=== PATIENT | male | born 1960 | race Caucasian/White ===

== ENCOUNTER → 2016-07-30 | Outpatient (CLI) | payer OTHER ==
[~2016-07-30] MED LIST: [UNRECOGNIZED DRUG - CODE]
[2016-07-30 18:32] LABS: BLOOD UREA NITROGEN 27 mg/dl (7-18); BUN/CREATININE RATIO 20.4 (10-20); CALCIUM 8.7 mg/dl (8.5-10.1); CARBON DIOXIDE 24 mmol/L (21-32); CHLORIDE 104 mmol/L (98-107); GLUCOSE 208 mg/dl (70-99); POTASSIUM 4.3 mmol/L (3.5-5.1); SODIUM 138 mmol/L (136-145)
[2016-07-30 18:45] LABS: CHOLESTEROL 99 mg/dl (0-200); CHOLESTEROL/HDL RATIO 3.2; HDL CHOLESTEROL 31 mg/dl; TRIGLYCERIDES 369 mg/dl (0-150); VERY LOW DENSITY LIPOPROT CALC 74 mg/dl
[2016-07-30 19:15] LABS: LDL CHOLESTEROL CALCULATED < 1 mg/dl
[2016-07-31 06:17] LABS: ESTIMATED AVERAGE GLUCOSE 192 mg/dl; HA1C FLAG Normal (Normal)
== END | disposition home or self-care (01) ==
LOC: C.LABPVFM 13:52
PROVIDERS: ATTEND Family Medicine
DX: N52.9 Male erectile dysfunction, unspecified (principal); E78.5 Hyperlipidemia, unspecified; E11.9 Type 2 diabetes mellitus without complications; M25.569 Pain in unspecified knee

== ENCOUNTER → 2016-08-01 | Outpatient (CLI) | payer OTHER ==
[2016-08-01 13:35] LABS: BLOOD UREA NITROGEN 24 mg/dl (7-18); BUN/CREATININE RATIO 32.6 (10-20); CALCIUM 9.7 mg/dl (8.5-10.1); CARBON DIOXIDE 28 mmol/L (21-32); CHLORIDE 108 mmol/L (98-107); CREATININE 0.75 mg/dl (0.60-1.40); GLUCOSE 119 mg/dl (70-99); POTASSIUM 4.4 mmol/L (3.5-5.1); SODIUM 143 mmol/L (136-145)
[2016-08-01 13:40] LABS: CHOLESTEROL 95 mg/dl (0-200); CHOLESTEROL/HDL RATIO 2.6; HDL CHOLESTEROL 37 mg/dl; LDL CHOLESTEROL CALCULATED 40 mg/dl; TRIGLYCERIDES 92 mg/dl (0-150); VERY LOW DENSITY LIPOPROT CALC 18 mg/dl
== END | disposition home or self-care (01) ==
LOC: C.LABPVFM 09:31
PROVIDERS: ATTEND Family Medicine
DX: E78.5 Hyperlipidemia, unspecified (principal); E11.9 Type 2 diabetes mellitus without complications; N52.9 Male erectile dysfunction, unspecified; I10 Essential (primary) hypertension

== ENCOUNTER → 2016-10-28 | Outpatient (CLI) | payer OTHER ==
[2016-10-29 06:22] LABS: ESTIMATED AVERAGE GLUCOSE 180 mg/dl; HA1C FLAG Normal (Normal)
== END | disposition home or self-care (01) ==
LOC: C.LABPVFM 15:35
PROVIDERS: ATTEND Family Medicine
DX: E11.9 Type 2 diabetes mellitus without complications (principal)

== ENCOUNTER → 2017-03-26 | Outpatient (CLI) | payer OTHER ==
[2017-03-26 18:02] LABS: ALT/SGPT 39 U/L (12-78); AST/SGOT 20 U/L (15-37); BLOOD UREA NITROGEN 17 mg/dl (7-18); BUN/CREATININE RATIO 22.5 (10-20); CALCIUM 9.3 mg/dl (8.5-10.1); CARBON DIOXIDE 27 mmol/L (21-32); CHLORIDE 106 mmol/L (98-107); CHOLESTEROL 96 mg/dl (0-200); CREATININE 0.75 mg/dl (0.60-1.40); GLUCOSE 77 mg/dl (70-99); POTASSIUM 4.1 mmol/L (3.5-5.1); SODIUM 139 mmol/L (136-145); TRIGLYCERIDES 88 mg/dl (0-150); VERY LOW DENSITY LIPOPROT CALC 18 mg/dl
[2017-03-26 18:05] LABS: ALB/GLOB RATIO 1.1 (0.9-2); ALKALINE PHOSPHATASE 58 U/L (45-117); CHOLESTEROL/HDL RATIO 2.7; HDL CHOLESTEROL 35 mg/dl; LDL CHOLESTEROL CALCULATED 43 mg/dl
[2017-03-27 07:00] LABS: ESTIMATED AVERAGE GLUCOSE 200 mg/dl; HA1C FLAG Normal (Normal)
== END | disposition home or self-care (01) ==
LOC: C.LABPVFM 15:38
PROVIDERS: ATTEND Family Medicine
DX: G47.00 Insomnia, unspecified (principal); E11.9 Type 2 diabetes mellitus without complications; I10 Essential (primary) hypertension; E78.5 Hyperlipidemia, unspecified; N52.9 Male erectile dysfunction, unspecified

== ENCOUNTER → 2017-06-29 | Outpatient (CLI) | payer BC, OTHER ==
[2017-06-29 18:51] LABS: ALBUMIN 3.7 gm/dl (3.4-5.0); ALT/SGPT 55 U/L (12-78); BLOOD UREA NITROGEN 23 mg/dl (7-18); CALCIUM 9.4 mg/dl (8.5-10.1); CARBON DIOXIDE 26 mmol/L (21-32); GLUCOSE 90 mg/dl (70-99); POTASSIUM 4.4 mmol/L (3.5-5.1); SODIUM 139 mmol/L (136-145)
[2017-06-29 18:58] LABS: ALKALINE PHOSPHATASE 65 U/L (45-117); AST/SGOT 35 U/L (15-37); TOTAL PROTEIN 6.9 gm/dl (6.4-8.2)
[2017-06-30 07:07] LABS: HEMOGLOBIN A1C 9.1 % (4.5-5.6)
== END | disposition home or self-care (01) ==
LOC: C.LABPVFM 15:21
PROVIDERS: ATTEND Family Medicine
DX: E78.5 Hyperlipidemia, unspecified (principal); N52.9 Male erectile dysfunction, unspecified; I10 Essential (primary) hypertension

== ENCOUNTER → 2017-09-20 | Outpatient (CLI) | payer BC, OTHER ==
[2017-09-21 06:25] LABS: HEMOGLOBIN A1C 9.1 % (4.5-5.6)
== END | disposition home or self-care (01) ==
LOC: C.LABPVFM 14:49
PROVIDERS: ATTEND Family Medicine
DX: N52.9 Male erectile dysfunction, unspecified (principal); G47.00 Insomnia, unspecified; E11.9 Type 2 diabetes mellitus without complications; I10 Essential (primary) hypertension; E78.5 Hyperlipidemia, unspecified

== ENCOUNTER → 2018-01-19 | Outpatient (CLI) | payer BC, OTHER ==
[2018-01-19 17:51] LABS: ALBUMIN 3.9 gm/dl (3.4-5.0); ALKALINE PHOSPHATASE 85 U/L (45-117); ALT/SGPT 59 U/L (12-78); AST/SGOT 31 U/L (15-37); BLOOD UREA NITROGEN 22 mg/dl (7-18); CALCIUM 9.4 mg/dl (8.5-10.1); CARBON DIOXIDE 27 mmol/L (21-32); CREATININE 1.04 mg/dl (0.60-1.40); GLUCOSE 192 mg/dl (70-99); POTASSIUM 4.1 mmol/L (3.5-5.1); SODIUM 136 mmol/L (136-145); TOTAL PROTEIN 7.2 gm/dl (6.4-8.2)
== END | disposition home or self-care (01) ==
LOC: C.LABPVFM 15:38
PROVIDERS: ATTEND Family Medicine
DX: E11.29 Type 2 diabetes mellitus with other diabetic kidney complication (principal)

== ENCOUNTER 2022-09-01 06:25 | Observation (INO) ==
--- NOTE | 2022-08-25 10:29 | Anesthesiology Consultation ---
Date of Service August 25, 2022 Assessment & Plan (1) Encounter for pre-operative examination: Chart Review Chart Review: Acceptable Risk for Surgery and Patient NOT seen in Pre Admission Testing - Check BSG AM DOS -COVID screening: Per PAT nursing assessment on 08/25/22. No known COVID-19 positive contacts or current COVID-19 related symptoms. Travel screen negative. Patient vaccinated for Covid. At surgeon discretion if preop Covid testing being done. History Surgery Operation Date: 09/01/22 08:50 Proposed Procedures p Robotic Laparoscopic Assisted Partial Nephrectomy Right Radical - Nima Bond MD Height/Weight Height: 5 ft 9.5 in Weight: 93.894 kg Allergies Allergy/AdvReac Type Severity Reaction Status Date / Time meperidine Allergy Mild "GOES Verified 08/25/22 09:42 BEZERC", TEARS THINGS UP Medications Home Medications Medication Instructions Recorded Confirmed Last Taken aspirin 81 mg tablet,delayed 81 mg PO DAILY #30 tabs 11/06/18 08/25/22 Unknown release (Adult Low Dose Aspirin) blood-glucose meter #1 ea 11/09/19 08/19/22 Unknown lancets #100 ea 11/09/19 08/19/22 Unknown blood sugar diagnostic (Blood #100 ea 07/23/21 08/19/22 Unknown Glucose Test strips) glipizide 10 mg tablet 10 mg PO BID #180 tabs 02/02/22 08/25/22 Unknown metformin 1,000 mg tablet 1,000 mg PO BID #180 tabs 02/02/22 08/25/22 Unknown empagliflozin 25 mg tablet 25 mg PO DAILY #90 tabs 03/09/22 08/25/22 Unknown gabapentin 100 mg capsule 100 - 200 mg PO TID PRN neuropathy 03/09/22 08/25/22 Unknown #180 caps atorvastatin 40 mg tablet 40 mg PO QPM #90 tabs 06/11/22 08/25/22 Unknown dulaglutide 1.5 mg/0.5 mL 1.5 mg (0.5 mL) subcut .COMPLEX #6 06/11/22 08/25/22 Unknown subcutaneous pen injector mL lisinopril 40 mg tablet 40 mg PO DAILY #90 tabs 06/11/22 08/25/22 Unknown multivitamin 1 tab PO QAM 08/25/22 08/25/22 Unknown Past Medical History Medical History (Updated 08/25/22 @ 10:43 by Zahraa Blackwell PA-C) Chronic kidney disease Follows with nephro- last seen 08/02/22 Baseline creat 1.1 Diabetes mellitus Hyperlipidemia Hypertension Kidney stones Peripheral neuropathy bilateral legs/feet Renal mass, right Upper extremity neuropathy right hand severe Past Family History Family History Father Diabetes Alcohol abuse Myocardial infarction History of kidney stones Hypertension Mother Myocardial infarction History of kidney stones Hypertension Sister History of kidney stones Cancer Of stomach Brother Diabetes Stroke Other No family history of adverse response to anesthesia Denies family history of Ovarian cancer Prostate cancer Breast cancer Colorectal cancer Past Surgical History Surgical History History of lithotripsy History of nasal surgery History of shoulder surgery right History of tooth extraction Social History Smoking Status: Former smoker tobacco type: cigarettes Smoking cigarettes per day: Pack a week Smoking End Date: Jun/Jul 2022 Hx Alcohol Use: Yes Alcohol type: beer alcohol intake frequency: a few times a month Hx Substance Use: No substance use type: does not use Lab Results Anesthesia Preop Results Results Anesthesia Widget: WBC 7.05 K/ul (4.8-10.8) 08/24/22 Hgb 11.2 g/dl (14.0-18.0) L 08/24/22 Hct 34.9 % (42.0-52.0) L 08/24/22 Plt 251 K/uL (130-400) 08/24/22 Na 138 mmol/L (136-145) 08/24/22 K 4.5 mmol/L (3.5-5.1) 08/24/22 Cl 103 mmol/L (98-107) 08/24/22 CO2 26 mmol/L (21-32) 08/24/22 BUN 33 mg/dl (6-23) H 08/24/22 Creat 1.09 mg/dl (0.6-1.4) 08/24/22 Glucose Level 197 mg/dl (70-99(Fasting)) H 08/24/22 Testing Laboratory Results 08/19/22= UA: Negative URINE CULTURE: No growth 06/12/22= HGB A1C: 8.2 Electrocardiogram Date: 08/24/22 Findings: + NSR @ (85bpm) RBBB Chest X-Ray Date: 08/24/22 Findings: + NAD FINDINGS: PA and lateral chest radiographs are obtained. No prior studies are available for comparison at the time of dictation. The cardiomediastinal silhouette is unremarkable. There is mild elevation of the left hemidiaphragm with associated atelectasis. The lungs and pleural spaces are otherwise clear. There is no pneumothorax. The bony thorax appears intact. Degenerative change is noted in the thoracic spine.
[~2022-09-01 06:25] MED LIST changes: +LR 15ML/HR IV SCH; -[UNRECOGNIZED DRUG - CODE]; +ceFAZolin 2000MG 2,000 MG/15 ML SYR IV SCH
[2022-09-01] MEDS ORDERED: DEXAMETHASONE SOD INJ 4 MG/ML VIAL ONE ×2 (06:59→09:59)
[2022-09-01] MEDS ORDERED: fentaNYL citrate PF 100 MCG/2 ML VIAL ONE (07:00)
[2022-09-01] MEDS ORDERED: ROCURONIUM BROMIDE 10 MG/ML 5 ML VIAL IV ONE (07:00)
[2022-09-01] MEDS ORDERED: SUGAMMADEX SODIUM 200 MG/2 ML VIAL IV ONE (07:00)
[2022-09-01] MEDS ORDERED: LIDOCAINE 2% 2 ML VIAL/AMP(20MG/ML) INFIL ONE (07:00)
[2022-09-01] MEDS ORDERED: MIDAZOLAM HCL 1 MG/ML 2ML VIAL ONE (07:00)
[2022-09-01] MEDS ORDERED: ONDANSETRON INJ 2 MG/ML 2 ML VIAL ONE (07:00)
[2022-09-01] MEDS ORDERED: PROPOFOL IV EMULSION 10 MG/ML 20 ML VIAL IV ONE (07:00)
--- NOTE | 2022-09-01 07:13 | History & Physical Bridge Note ---
Date of Service September 01, 2022 History & Physical Bridge Note I have examined the patient, reviewed the History & Physical and in the interval since the performance of the History & Physical I have noted the following changes of clinical significance: no changes noted
[2022-09-01] MEDS ORDERED: ONDANSETRON INJ 2 MG/ML 2 ML VIAL IV PRN ×2 (07:42→12:35)
[2022-09-01] MEDS ORDERED: ATROPINE SULFATE 0.1 MG/ML 10ML SYR IV PRN (07:42)
[2022-09-01] MEDS ORDERED: ePHEDrine sulfate 50 MG/ML AMP IV PRN (07:42)
[2022-09-01] MEDS ORDERED: BUPIVACAINE 0.5 % 5 MG/1 ML MPF 30ML VIAL ONE (08:20)
[2022-09-01] MEDS ORDERED: HYDROmorphone INJ 2 MG/ML SYR/VIAL ONE (09:27)
--- NOTE | 2022-09-01 11:15 | Operative Report ---
PG Post Operative Report Pre & Post Diagnosis Operation Date: 09/01/22 08:15 Pre-Op Diagnosis: Right Renal Mass; suspicious paracaval node Post-Op Diagnosis: Right Renal Mass; suspicious paracaval adenopathy I identified the patient and participated in the time-out.: Yes Procedure Operation Date: 09/01/22 08:15 Actual Procedures p Right Radical Hand Assisted Nephrectomy(Right) - Nima Bond MD Surgeon Nima Bond MD [employer] T[employer] Patrizia Rogers Estimated Blood Loss 50 Findings Consistent with Post-Op Diagnosis Specimens 1. Right kidney 2. Paracaval node Description of Procedure Patient was identified in the preoperative holding area, appropriate informed consents reviewed and completed and he was transferred to the operating suite. Upon arrival she had appropriate preoperative antibiotics was placed in the left side down right side up lateral decubitus position with the bed flexed. Fish catheter was inserted prior to prep. To begin the surgical portion of the case an incision was made in the right lower quadrant in the Jerome style. This was carried down to the lateral border of the rectus and laterally we dissected through the external oblique, internal oblique and transversalis. The peritoneum was opened sharply and a finger sweep performed revealing no adhesions. This incision was then widened to approximately 8 cm. This accommodated a HandPort which was subsequently placed. I insufflated the abdomen by placing a 12 mm trocar through the HandPort. I then performed a l aparoscopic evaluation and confirmed that the anterior abdominal wall was cleared of adhesions and proceeded to place 212 mm daycare assistant ports just lateral to the rectus border, 1 approximately 4 cm below the costal margin in the next approximately 8 cm inferior to that port. Both leads were placed directly onto my hand without incident. To begin the laparoscopic portion of the case I incised the white line of Toldt and medialize the colon off of the kidney. The duodenum was already somewhat medialized and did not require a significant kocherization. I incised lateral to the kidney and I also incised the superior aspect of the peritoneum overlying the upper pole of the kidney. The liver was somewhat adherent to the kidney and I dissected between the 2 to further mobilize the liver and allow access to the upper pole of the kidney. All of this dissection was performed with a combination of harmonic scalpel and blunt dissection. I then turned my attention to the medial aspect of the kidney. We were able to identify the gonadal vein and I dissected a plane just lateral to the gonadal and IVC and onto the psoas muscle. The ureter was included in the packet lateral to this dissection. I was able to perform blunt dissection across the psoas muscle and free the posterior aspect of the kidney. I was unable to place my hand under the hilar structures and posterior aspect in the elevating the kidney and placing the hilar vessels on stretch. We carefully teased away up the lateral border of the IVC until we reached the inferior pole of the vein. A window was made behind the vascular structures and into a space just cephalad to the hilar structures. A 60 mm staple device was passed and the hilar structures controlled in a single load. The adrenal gland was in close proximity at that time and I placed 3 additional staple loads across the upper pole of the kidney taking a portion of the adrenal gland with me. This freed the upper medial aspect of the kidney. I then turned my attention back to the lateral and extreme upper pole of the kidney. These were dissected utilizing the harmonic scalpel until the kidney was entirely freed with the exception of the lower cone of Gerota's fascia and ureter. This area was controlled with harmonic scalpel with extra care for the ureter. The specimen was then extracted through the GelPort and passed off the table. Hemostasis was excellent. Of note, the patient also had a suspicious lymph node on the anterior surface of the cava just above the hilar structures. We turned our attention to this area and began to dissect along the superior surface of the cava. Unfortunately he has likely had prior cholecystitis and his gallbladder was stuck down to some omentum. Careful dissection allowed this to be elevated and further expose the cava. We are able to palpate the suspicious node. This was approximately 1 to 1-1/2 cm in size. We carefully dissected around it and removed it. Unfortunate is quite adherent to the cava as there was no additional tissue taken. I felt no other abnormal nodes or suspicious adenopathy. Hemostasis from this area was excellent as well. We then proceeded to close. I again confirmed excellent hemostasis before beginning to reapproximate the superficial tissues. I closed the peritoneum with a running 0 Vicryl to help facilitate visualization of the rest of the fascial closure. We then closed transversalis with a 0 Vicryl followed by external oblique fascia and internal oblique fascia both with 0 PDS sutures in running fashion. Sharon's fascia was reapproximated with 0 Vicryl before closure of the skin with 4-0 Monocryl. All of those layers were infiltrated with half percent Marcaine prior to completing the closure. Dermabond was placed over that incision. The 2-12 mm daycare assistant ports were both closed with 4- 0 Monocryl and Dermabond and both were also infiltrated with half percent Marcaine prior to closure. At the conclusion of the case the kidney and lymph node were passed off the table for pathology. He was reversed of anesthesia. There were no complications. He tolerated the procedure extremely well. Patrizia Rogers assisted throughout the entire procedure from incision to closure. I attest to the content of the Intraoperative Record and any orders documented therein. Any exceptions are noted below.
[2022-09-01] MEDS: fentaNYL citrate PF 100 MCG/2 ML VIAL IV PRN ×4 (11:22→11:37)
[2022-09-01] MEDS ORDERED: LABETALOL HCL IV 5 MG/ML 20ML IV ONE (11:33)
[2022-09-01] MEDS ORDERED: LABETALOL HCL IV 5 MG/ML 20ML IV STA (11:35)
[2022-09-01 11:38] LABS: Basophils # (auto) 0.05 K/uL (0-0.2); Basophils % (auto) 0.3 %; Eosinophils # (auto) 0.08 K/uL (0-0.50); Eosinophils % (auto) 0.6 %; Hematocrit (blood only) 35.2 % (42.0-52.0); Hemoglobin 11.1 g/dl (14.0-18.0); Immature Granulocytes # (auto) 0.08 K/uL (0.01-0.20); Immature Granulocytes % (auto) 0.6 %; Lymphocytes # (auto) 1.51 K/uL (1.2-3.4); Lymphocytes % (auto) 10.4 %; Mean Corpuscular Hemoglobin 28.7 pg (25.0-34.0); Mean Corpuscular Hgb Conc 31.5 g/dL (32.0-36.0); Mean Platelet Volume 9.5 fL (9.4-12.4); Monocytes # (auto) 0.47 K/uL (0.11-0.59); Monocytes % (auto) 3.2 %; Neutrophils # (auto) 12.34 K/uL (1.40-6.50); Neutrophils % (auto) 84.9 %; Platelet Count 266 K/uL (130-400); RDW Standard Deviation 46.2 fL (36.4-46.3); Red Blood Count 3.87 M/uL (4.70-6.10); White Blood Count 14.53 K/ul (4.8-10.8)
[2022-09-01] MEDS: HYDROmorphone INJ 1 MG/ML SYRINGE IV PRN ×4 (11:51→12:06)
[2022-09-01] MEDS ORDERED: HYDROmorphone INJ 1 MG/ML SYRINGE ONE (11:54)
[2022-09-01 11:55] LABS: BUN Creatinine Ratio 23.8 (10-20); Calcium 9.3 mg/dl (8.6-10.3); Creatinine Clr Calc Pharmacy 72.1 ml/min; Est GFR (African American) 73.7 ml/min; Est GFR (Non-African American) 63.6 ml/min; Potassium 5.3 mmol/L (3.5-5.1)
[2022-09-01] MEDS ORDERED: HYDROmorphone INJ 0.5 MG/0.5 ML SYR IV STA (12:03)
[2022-09-01] MEDS ORDERED: MoRPHine SULFATE 2 MG/ML CARP IV PRN (12:35)
[2022-09-01] MEDS ORDERED: GABAPENTIN 100 MG CAP PO PRN (12:35)
[2022-09-01] MEDS ORDERED: PHARMACY GLYCEMIC MGMT CONSULT PRN (12:35)
[2022-09-01] MEDS ORDERED: oxyCODONE HCL IR 5 MG TAB (IMMEDIATE RELEASE) PO PRN (12:35)
[2022-09-01] MEDS ORDERED: MoRPHine SULFATE 4 MG/ML 1 ML CARP\\VIAL IV PRN (12:35)
[2022-09-01] MEDS: LACTATED RINGER'S 1,000 ML IV SCH ×2 (12:50→22:53)
[2022-09-01] MEDS ORDERED: GLUCOSE 40% GEL 15 GM TUBE PO PRN (13:00)
[2022-09-01] MEDS ORDERED: DEXTROSE 50% 50 ML SYRINGE IV PRN (13:00)
[2022-09-01] MEDS ORDERED: GLUCAGON FOR INJ 1 MG VIAL IM PRN (13:00)
[2022-09-01] MEDS ORDERED: CARBOHYDRATES FOR HYPOGLYCEMIA PO PRN (13:00)
[2022-09-01] MEDS ORDERED: GLUCOSE 10 TAB/TUBE PO PRN (13:00)
--- NOTE | 2022-09-01 13:11 | Pharmacy Report ---
Pharmacy Glycemic Short Note 2 - Date of Service September 01, 2022 - Glycemic Short BSG Results (Last 24 hours): 09/01/22 09/01/22 09/01/22 06:53 11:09 11:17 Glucose 194 H POC Glucose 95 181 H 09/01/22 12:37 Glucose POC Glucose 200 H OUTPATIENT ANTIDIABETIC REGIMEN: * Metformin 1 g PO BID, glipizide 10 mg PO BID, empagliflozin 25 mg PO daily, dulaglutide 1.5 mg SQ weekly * A1c = 8.2% (06/12/22) ASSESSMENT: * Phillip is s/p right radical hand assisted nephrectomy. It appears that he may have received two dose of dexamethasone IV per-operatively. * He is on multiple oral anti-diabetic agents + GLP-1 receptor agonist as an outpatient. These agents will be held and SQ basal + bolus insulin will be started. Will dose Novolog based on weight/stress 3 for POD #0. PLAN FOR INPATIENT GLYCEMIC CONTROL: * Hold outpatient oral diabetes medications * Basal insulin * Lantus 20 units SQ x 1 * Further dosing TBD * Bolus insulin * NovoLog per scale ACHS or Q6hrs while NPO * Goal Range: Low 110 mg/dL - High 140 mg/dL * Correction Factor: 20 mg/dL/unit * Nutritional / Prandial insulin per carb ratio of 1 unit per 7 grams CHO consumed
[2022-09-01] MEDS ORDERED: LANTUS PER UNIT CHARGE SQ ONE (13:15)
[2022-09-01] MEDS: INSULIN ASPART PER UNIT CHARGE SC SCH ×3 (13:23→22:08)
[2022-09-01] MEDS: ACETAMINOPHEN 325 MG TAB PO SCH ×2 (13:31→20:37)
[2022-09-01] MEDS: oxyCODONE HCL IR 5 MG TAB (IMMEDIATE RELEASE) PO PRN ×2 (14:45→22:21)
--- NOTE | 2022-09-01 15:03 | Anesthesiology Progress Note ---
Date of Service September 01, 2022 Anesthesia Post Procedure Vital Signs Vital Signs: Temp Pulse Resp BP Pulse Ox O2 Del Method O2 Flow Rate 09/01/22 14:45 97.7 F 91 H 18 146/76 H Nasal Cannula 2 09/01/22 13:45 98.1 F 90 18 160/79 H 97 Nasal Cannula 2 09/01/22 13:18 87 18 161/77 H 98 Nasal Cannula 2 09/01/22 12:45 Nasal Cannula 2 09/01/22 12:36 98.6 F 84 16 156/80 H 96 Room Air 09/01/22 12:15 97.5 F L 78 16 171/86 H 98 Nasal Cannula 2 09/01/22 12:05 82 16 163/87 H 99 Nasal Cannula 2 09/01/22 11:55 78 16 178/92 H 99 Nasal Cannula 2 09/01/22 11:45 79 18 171/93 H 99 Room Air 09/01/22 11:35 84 18 176/82 H 95 Oxymask 5 09/01/22 11:25 89 18 216/117 H 100 Oxymask 5 09/01/22 11:15 91 H 18 192/92 H 97 Oxymask 5 09/01/22 11:07 97.2 F L 92 H 18 193/91 H 97 Oxymask 5 09/01/22 06:52 98.1 F 76 18 148/71 H 98 Room Air Pain Intensity Bilateral Foot: Pain Intensity: 3 Penis: Pain Intensity: 8 Transfer of Care Handoff Completed per policy Notes Mental Status: alert / awake / arousable and participated in evaluation Patient Amnestic to Procedure: Yes Nausea / Vomiting: adequately controlled Pain: adequately controlled Airway Patency, RR, SpO2: stable & adequate BP & HR: stable & adequate Hydration State: stable & adequate Anesthetic Complications: no major complications apparent and Pt Satisfied with anesthetic care
[2022-09-01] MEDS: ceFAZolin 2000MG 2,000 MG/15 ML SYR IV SCH (16:40)
[2022-09-01] MEDS: DOCUSATE SODIUM 100 MG CAP PO SCH (20:37)
[2022-09-01] MEDS: ATORVASTATIN 40 MG TAB PO SCH (20:37)
[2022-09-01] MEDS: HEPARIN SOD 5,000 UNIT/0.5 ML VIAL SQ SCH (20:40)
[2022-09-02] MEDS: ceFAZolin 2000MG 2,000 MG/15 ML SYR IV SCH (00:34)
[2022-09-02] MEDS: ACETAMINOPHEN 325 MG TAB PO SCH ×4 (01:21→19:39)
[2022-09-02 07:27] LABS: Basophils # (auto) 0.04 K/uL (0-0.2); Basophils % (auto) 0.4 %; Eosinophils # (auto) 0.03 K/uL (0-0.50); Eosinophils % (auto) 0.3 %; Hematocrit (blood only) 33.4 % (42.0-52.0); Hemoglobin 10.7 g/dl (14.0-18.0); Immature Granulocytes # (auto) 0.02 K/uL (0.01-0.20); Immature Granulocytes % (auto) 0.2 %; Lymphocytes # (auto) 1.24 K/uL (1.2-3.4); Lymphocytes % (auto) 12.6 %; Mean Corpuscular Volume 90.5 fL (80.0-100.0); Mean Platelet Volume 9.9 fL (9.4-12.4); Monocytes # (auto) 0.83 K/uL (0.11-0.59); Monocytes % (auto) 8.5 %; Neutrophils # (auto) 7.66 K/uL (1.40-6.50); Platelet Count 248 K/uL (130-400); RDW Coefficient of Variation 13.9 % (11.5-14.5); RDW Standard Deviation 45.8 fL (36.4-46.3); Red Blood Count 3.69 M/uL (4.70-6.10); White Blood Count 9.82 K/ul (4.8-10.8)
--- NOTE | 2022-09-02 08:01 | Urology Progress Note ---
Date of Service September 02, 2022 Assessment & Plan (1) Renal mass, right: Plan: Postop day #1 status post right radical nephrectomy and excision of pericaval lymph node Doing very well now Hemoglobin appropriate, creatinine pendingexcellent urine output overnight Plan for Fish removal this morning Ambulation Continue diet Likely discharge home tomorrow if he continues to progress Admission and Anticipated Discharge Date Admission Date: September 01, 2022 Subjective No major issues overnight Tolerating diet Some minor discomfort around the incision as would be expected but no other concerning symptoms Physical Exam Physical Exam: Incisions appropriate, abdomen soft, appropriately tender Urine clear Results & Data Vital Signs (Past 12 Hours) Vital Signs Temp Pulse Resp BP Pulse Ox O2 Del Method 09/02/22 06:57 36.6 C 59 L 18 147/71 H 98 Room Air 09/02/22 03:00 36.7 C 71 18 127/64 96 Room Air 09/01/22 23:00 36.6 C 91 H 16 139/70 94 Room Air PG Care Time/CCT Total # of Minutes Spent Total Time Spent with Patient: Total time spent is greater than 50% in coordination of care (as documented) at patient's floor/unit and/or counseling patient: Coding Level of Care Code None Diagnoses Renal mass, right N28.89
[2022-09-02 09:17] LABS: Calcium 9.1 mg/dl (8.6-10.3)
[2022-09-02] MEDS: DOCUSATE SODIUM 100 MG CAP PO SCH ×2 (09:21→19:39)
[2022-09-02] MEDS: LACTATED RINGER'S 1,000 ML IV SCH ×2 (09:21→21:16)
[2022-09-02] MEDS: oxyCODONE HCL IR 5 MG TAB (IMMEDIATE RELEASE) PO PRN ×2 (09:22→17:47)
[2022-09-02] MEDS: HEPARIN SOD 5,000 UNIT/0.5 ML VIAL SQ SCH ×2 (09:23→19:40)
[2022-09-02] MEDS: INSULIN ASPART PER UNIT CHARGE SC SCH ×4 (09:23→21:14)
[2022-09-02 09:26] LABS: BUN Creatinine Ratio 18.6 (10-20); Creatinine Clr Calc Pharmacy 43.1 ml/min; Est GFR (African American) 39.6 ml/min; Est GFR (Non-African American) 34.2 ml/min
--- NOTE | 2022-09-02 14:04 | Pharmacy Report ---
Pharmacy Glycemic Short Note 2 - Date of Service September 02, 2022 - Glycemic Short BSG Results (Last 24 hours): 09/01/22 09/01/22 09/02/22 16:51 20:20 06:45 Glucose 112 H POC Glucose 230 H 198 H 09/02/22 09/02/22 08:03 12:07 Glucose POC Glucose 133 H 256 H OUTPATIENT ANTIDIABETIC REGIMEN: * Metformin 1 g PO BID, glipizide 10 mg PO BID, empagliflozin 25 mg PO daily, dulaglutide 1.5 mg SQ weekly * A1c = 8.2% (06/12/22) ASSESSMENT: 09/02 * Yesterday BSG was between 95-230 mg/dL. Total insulin was 44 units (Basal 20 units) * FBSG today was 133 mg/dL. Suspect dexamethasone was given in the OR during surgery 09/01. Expect BSG to start trending down over the day as dexamethasone start to wear off * Reduced basal by 10 % (18 units of Lantus) and added overnight checks 09/01 * Phillip is s/p right radical hand assisted nephrectomy. It appears that he may have received two dose of dexamethasone IV per-operatively. * He is on multiple oral anti-diabetic agents + GLP-1 receptor agonist as an out patient. These agents will be held and SQ basal + bolus insulin will be started. Will dose Novolog based on weight/stress 3 for POD #0. PLAN FOR INPATIENT GLYCEMIC CONTROL: * Hold outpatient oral diabetes medications * Basal insulin * Lantus 20 units SQ x 1 * Further dosing TBD * Bolus insulin * NovoLog per scale ACHS or Q6hrs while NPO * Goal Range: Low 110 mg/dL - High 140 mg/dL * Correction Factor: 20 mg/dL/unit * Nutritional / Prandial insulin per carb ratio of 1 unit per 7 grams CHO consumed
[2022-09-02] MEDS ORDERED: LANTUS PER UNIT CHARGE SQ ONE (16:30)
[2022-09-02] MEDS: ATORVASTATIN 40 MG TAB PO SCH (19:40)
[2022-09-03] MEDS: oxyCODONE HCL IR 5 MG TAB (IMMEDIATE RELEASE) PO PRN ×2 (00:05→12:49)
[2022-09-03] MEDS: INSULIN ASPART PER UNIT CHARGE SC SCH ×6 (00:10→20:19)
[2022-09-03] MEDS: ACETAMINOPHEN 325 MG TAB PO SCH ×4 (01:43→20:38)
[2022-09-03 06:34] LABS: Basophils # (auto) 0.05 K/uL (0-0.2); Basophils % (auto) 0.6 %; Eosinophils # (auto) 0.18 K/uL (0-0.50); Eosinophils % (auto) 2.3 %; Hematocrit (blood only) 36.1 % (42.0-52.0); Hemoglobin 11.4 g/dl (14.0-18.0); Immature Granulocytes # (auto) 0.02 K/uL (0.01-0.20); Immature Granulocytes % (auto) 0.3 %; Lymphocytes # (auto) 1.45 K/uL (1.2-3.4); Lymphocytes % (auto) 18.3 %; Mean Corpuscular Hgb Conc 31.6 g/dL (32.0-36.0); Mean Corpuscular Volume 91.9 fL (80.0-100.0); Mean Platelet Volume 9.5 fL (9.4-12.4); Monocytes # (auto) 0.69 K/uL (0.11-0.59); Monocytes % (auto) 8.7 %; Neutrophils # (auto) 5.55 K/uL (1.40-6.50); Neutrophils % (auto) 69.8 %; Platelet Count 268 K/uL (130-400); RDW Coefficient of Variation 14.2 % (11.5-14.5); RDW Standard Deviation 48.4 fL (36.4-46.3); Red Blood Count 3.93 M/uL (4.70-6.10); White Blood Count 7.94 K/ul (4.8-10.8)
[2022-09-03 06:56] LABS: BUN Creatinine Ratio 20.4 (10-20); Calcium 9.4 mg/dl (8.6-10.3); Creatinine Clr Calc Pharmacy 43.7 ml/min; Est GFR (African American) 40.3 ml/min; Est GFR (Non-African American) 34.8 ml/min; Potassium 4.9 mmol/L (3.5-5.1)
[2022-09-03] MEDS: DOCUSATE SODIUM 100 MG CAP PO SCH ×2 (08:47→20:37)
[2022-09-03] MEDS: HEPARIN SOD 5,000 UNIT/0.5 ML VIAL SQ SCH ×2 (08:47→20:37)
[2022-09-03] MEDS: LACTATED RINGER'S 1,000 ML IV SCH (08:48)
--- NOTE | 2022-09-03 09:41 | Urology Progress Note ---
Date of Service September 03, 2022 Assessment & Plan (1) Renal mass, right: Plan: POD #2 status post right radical nephrectomy and excision of pericaval lymph node Doing well, progressing as expected Labs reviewed - creatinine 2.01, WBC 7.94, Hgb 11.4 Voiding without difficulty after catheter removal He is ambulating and tolerating diet Continues to have some discomfort near incisions especially with position changes/movement He lives alone and hesitant to go home today Will monitor throughout the day and anticipate home later today or tomorrow depending on progress Discussed home medications with his information systems planner after discharge - will stop Lisinopril and switch to Amlodipine 5 mg daily, stop Metformin Admission and Anticipated Discharge Date Admission Date: September 01, 2022 Subjective Patient seen and examined at bedside this morning. He is awake, alert and sitting up in bedside chair. He reports poor sleep overnight but no acute issues. He continues to have pain near incisions mostly with movement and position changes. He has been ambulating. Voiding without difficulty after catheter removal yesterday. Tolerating diet. +Flatus. No nausea or vomiting. No fever or chills. Review of Systems Constitutional: as per Subjective / HPI Gastrointestinal: as per Subjective / HPI Genitourinary: + as per Subjective / HPI Physical Exam Constitutional: well developed and well nourished; no acute distress Respiratory: normal respiratory effort; no respiratory distress and no labored breathing Cardiovascular: Rate/Rhythm: regular rate Extremities: no pedal edema Gastrointestinal (Abdomen): Inspection/Auscultation: abdomen normal to inspection; abdomen not distended Abdomen soft, appropriately tender near incisions Skin: Incisions healthy and well approximated with Dermabond Psychiatric: Orientation: alert and oriented x 3 Results & Data Vital Signs (Past 12 Hours) Vital Signs Temp Pulse Resp BP Pulse Ox O2 Del Method 09/03/22 08:00 Room Air 09/03/22 07:44 36.7 C 69 18 149/81 H 97 Room Air 09/02/22 22:40 36.9 C 67 18 137/73 94 Room Air PG Care Time/CCT Total # of Minutes Spent Total Time Spent with Patient: Total time spent is greater than 50% in coordination of care (as documented) at patient's floor/unit and/or counseling patient: Coding Level of Care Code None Diagnoses Renal mass, right N28.89
[2022-09-03] MEDS ORDERED: LANTUS PER UNIT CHARGE SQ ONE (16:30)
[2022-09-03] MEDS: SIMETHICONE 80 MG CHEW PO PRN ×2 (16:55→22:20)
[2022-09-03] MEDS: ATORVASTATIN 40 MG TAB PO SCH (20:40)
[2022-09-04] MEDS: ACETAMINOPHEN 325 MG TAB PO SCH ×2 (02:20→09:02)
[2022-09-04] MEDS: HEPARIN SOD 5,000 UNIT/0.5 ML VIAL SQ SCH (08:49)
[2022-09-04 08:52] LABS: Basophils # (auto) 0.07 K/uL (0-0.2); Basophils % (auto) 1.2 %; Eosinophils # (auto) 0.24 K/uL (0-0.50); Hemoglobin 10.8 g/dl (14.0-18.0); Immature Granulocytes # (auto) 0.02 K/uL (0.01-0.20); Immature Granulocytes % (auto) 0.3 %; Lymphocytes # (auto) 0.92 K/uL (1.2-3.4); Lymphocytes % (auto) 15.4 %; Mean Corpuscular Hemoglobin 28.5 pg (25.0-34.0); Mean Corpuscular Hgb Conc 31.8 g/dL (32.0-36.0); Mean Corpuscular Volume 89.7 fL (80.0-100.0); Mean Platelet Volume 9.6 fL (9.4-12.4); Monocytes # (auto) 0.51 K/uL (0.11-0.59); Monocytes % (auto) 8.5 %; Neutrophils # (auto) 4.23 K/uL (1.40-6.50); Neutrophils % (auto) 70.6 %; Platelet Count 264 K/uL (130-400); RDW Coefficient of Variation 14.3 % (11.5-14.5); RDW Standard Deviation 46.5 fL (36.4-46.3); Red Blood Count 3.79 M/uL (4.70-6.10); White Blood Count 5.99 K/ul (4.8-10.8)
[2022-09-04] MEDS: oxyCODONE HCL IR 5 MG TAB (IMMEDIATE RELEASE) PO PRN (09:02)
[2022-09-04] MEDS: DOCUSATE SODIUM 100 MG CAP PO SCH (09:02)
[2022-09-04] MEDS: SIMETHICONE 80 MG CHEW PO PRN (09:04)
[2022-09-04 09:05] LABS: BUN Creatinine Ratio 20.5 (10-20); Calcium 9.5 mg/dl (8.6-10.3); Creatinine Clr Calc Pharmacy 45.1 ml/min; Est GFR (African American) 41.8 ml/min; Est GFR (Non-African American) 36.1 ml/min; Potassium 4.9 mmol/L (3.5-5.1)
--- NOTE | 2022-09-04 09:28 | Urology Progress Note ---
Date of Service September 04, 2022 Assessment & Plan (1) Renal mass, right: Plan: POD #3 s/p right radical nephrectomy and excision of pericaval lymph node for suspected renal malignancy Doing well, progressing as expected Labs reviewed - creatinine 1.95, WBC 5.99, Hgb 10.8 Voiding without difficulty He is ambulating and tolerating diet Reports adequate pain control He feels he is ready to go home today Plan to discharge this am - orders placed Discussed home medications with his waiter/waitress room service after discharge - will stop Lisinopril and switch to Amlodipine 5 mg daily, stop Metformin until follow-up with PCP. Will plan for BMP prior to f/u with PCP. Urology follow-up appointments in place. Admission and Anticipated Discharge Date Admission Date: September 01, 2022 Subjective Patient seen and examined at bedside this morning. He is awake, alert and sitting up in bedside chair. He reports feeling much better this am. He has been ambulating and showered this am. He continues to have some pain near incisions mostly with movement and position changes, but has improved. He had some gas pain yesterday, which is improving. Voiding without difficulty. Tolerating diet. +Flatus. No nausea or vomiting. No fever or chills. Review of Systems Constitutional: as per Subjective / HPI Gastrointestinal: as per Subjective / HPI Genitourinary: + as per Subjective / HPI Physical Exam Constitutional: well developed and well nourished; no acute distress Respiratory: normal respiratory effort; no respiratory distress and no labored breathing Cardiovascular: Rate/Rhythm: regular rate Extremities: no pedal edema Gastrointestinal (Abdomen): Inspection/Auscultation: abdomen normal to inspection; abdomen not distended Abdomen soft, appropriately tender near incisions Skin: Incisions healthy and well approximated with Dermabond Psychiatric: Orientation: alert and oriented x 3 Results & Data Vital Signs (Past 12 Hours) Vital Signs Temp Pulse Pulse Resp BP Pulse Ox O2 Del Method 09/04/22 08:01 36.4 C L 72 14 168/78 H 97 Room Air 09/03/22 22:16 36.7 C 84 16 138/78 95 Room Air PG Care Time/CCT Total # of Minutes Spent Total Time Spent with Patient: Total time spent is greater than 50% in coordination of care (as documented) at patient's floor/unit and/or counseling patient: Coding Level of Care Code None Diagnoses Renal mass, right N28.89
[2022-09-04] MEDS: INSULIN ASPART PER UNIT CHARGE SC SCH (09:32)
--- NOTE | 2022-09-04 09:41 | Discharge Summary ---
Date of Service September 04, 2022 Admission HPI Per Admitting Provider Patient with an enhancing, solid 5.3 cm right renal mass and 1 cm lymph node anterior to the IVC suspicious for malignancy presents for right radical nephrectomy. Admission Exam Per Admitting Provider Constitutional well developed and well nourished Neck neck nontender Respiratory normal respiratory effort; no respiratory distress and does not use accessory muscles Cardiovascular Rate/Rhythm: regular rate Vessels: radial pulses present Extremities: no edema Gastrointestinal (Abdomen) Inspection/Auscultation: abdomen normal to inspection Percussion/Palpation: abdomen soft; abdomen nontender and no guarding Obese, no palpable mass on the right or the left No surgical scars across the right hemiabdomen Musculoskeletal Head/Neck/Chest: normocephalic and head atraumatic Extremities: extremities normal to inspection Skin no rashes and no lesions Trauma: no evidence of skin trauma Neurologic awake; not obtunded Speech / Cognition: normal speech Motor/Sensory: no tremor Psychiatric Orientation: alert and oriented x 3 Genitourinary no CVA tenderness Lymphatic no lymphadenopathy Principal Diagnosis Right renal mass Discharge Exam Constitutional well developed and well nourished; no acute distress Respiratory normal respiratory effort; no respiratory distress and no labored breathing Cardiovascular Rate/Rhythm: regular rate Extremities: no pedal edema Gastrointestinal (Abdomen) Inspection/Auscultation: abdomen normal to inspection; abdomen not distended Skin Incisions healthy and well approximated with Dermabond. No erythema or drainage. Psychiatric Orientation: alert and oriented x 3 Discharge Data Allergies Allergy/AdvReac Type Severity Reaction Status Date / Time meperidine Allergy Mild "GOES Verified 09/01/22 06:50 BEZERC", TEARS THINGS UP Procedures Performed Operation Date: 09/01/22 08:15 Actual Procedures p Right Radical Hand Assisted Nephrectomy(Right) - Nima Bond MD Hospital Course (1) Renal mass, right: POD #3 s/p right radical nephrectomy and excision of pericaval lymph node for suspected renal malignancy Doing well, progressing as expected Labs reviewed - creatinine 1.95, WBC 5.99, Hgb 10.8 Voiding without difficulty He is ambulating and tolerating diet Reports adequate pain control He feels he is ready to go home today Plan to discharge this am - orders placed Discussed home medications with his interactive developer after discharge - will stop Lisinopril and switch to Amlodipine 5 mg daily, stop Metformin until follow-up with PCP. Will plan for BMP prior to f/u with PCP. Urology follow-up appointments in place. Total Time Total Time Spent Total Time Spent (In Minutes): 29 Discharge Plan Discharge Items Patient Disposition: Home - Self-Care Reason For Visit: Right Renal Mass Discharge Diagnosis: Right Renal Mass Activity: Per Instructions section Lifting: No more than 10 pounds Bathing Comment: Okay to shower after discharge Sexual Activity: Wait until after follow-up appointment Exercise/Sports: Wait until after follow-up appointment Driving/Machine Use: No driving while taking prescription pain medication Non-emergency contact: Surgeon and Urologist Call non-emergency contact if: your pain is not controlled, you have a fever, your temperature is above 101, your wound has increased redness, your wound has increased drainage and your wound pain has increased Follow-up/Referrals: Nima Bond MD [Physician] - 09/21/22 1:50 am Rhys Cavanaugh DO [Primary Care Provider] - Diet: Carb Consistent or DM2 Addtl Attending Provider Instructions: Please take all medications as prescribed and keep all follow-ups as scheduled. Please call our office at [phone] with any questions, concerns or need to reschedule appointments for any reason. We are happy to assist you. Medications: STOP your Lisinopril START Amlodipine 5 mg once daily - sent to your pharmacy You will HOLD your metformin until your follow-up with Dr. Cavanaugh. Please repeat lab work (basic metabolic panel) prior to your follow-up. You can resume your aspirin after discharge. Prescriptions also sent for Colace (stool softener) and Percocet (pain medication). Percocet contains Tylenol. Do not exceed 3000 mg of Tylenol in 24 hours. Recovering at home: We recommend having someone with you for the first few days after surgery to help care for you. It is okay to shower tomorrow. Please avoid swimming, bathing or using hot tub until incisions are well healed. Avoid driving until you are not requiring pain medication any further. Walk at least a few times a day. Increase your distance, as you feel able. Stairs in your home are okay. Please avoid strenuous or sexual activity until your follow-up. We recommend using stool softener (i.e. Colace) to prevent constipation and straining, especially the first two weeks post operatively. Call [facility] at [phone] if you experience: Chest pain or trouble breathing (call 911 or go to the hospital). Fever of 101F or higher Symptoms of infection at incision site, including redness or swelling, warmth, or bad-smelling drainage If you have catheter, and you notice: o Bloody urine or drainage that is dark red or has large clots (Please remember a small amount of blood is normal) o No drainage from the catheter for more than 6 hours o The catheter comes out of your bladder Pain that is not controlled with medicines Pending Studies at Discharge: Yes (pathology) Stand-Alone Forms: [facility] [employer], Smoking Cessation Medications and DC Order Prescriptions: New oxycodone-acetaminophen [Percocet] 5-325 mg tablet 1 tab PO TID PRN (Reason: pain) Qty: 10 0RF docusate sodium [Colace] 100 mg capsule 100 mg PO BID Qty: 60 0RF Rx Instructions: Take twice daily for 2 weeks, then as needed for constipation. amlodipine 5 mg tablet 5 mg PO DAILY Qty: 30 0RF Continued (DME) Blood Glucose Test Strip See Rx Instructions .ROUTE .MEDSUPPLY Qty: 100 11RF Rx Instructions: Check in the AM prior to breakfast glipizide 10 mg tablet 10 mg PO BID Qty: 180 3RF atorvastatin 40 mg tablet 40 mg PO QPM Qty: 90 3RF dulaglutide 1.5 mg/0.5 mL pen injector 1.5 mg subcut .COMPLEX Qty: 6 3RF Rx Instructions: 1.5 mg subcut WEEKLY; aspirin [Adult Low Dose Aspirin] 81 mg tablet,delayed release (DR/EC) 81 mg PO DAILY Qty: 30 2RF (DME) blood-glucose meter Misc See Rx Instructions .ROUTE .MEDSUPPLY Qty: 1 0RF Rx Instructions: As directed (DME) lancets Misc See Rx Instructions .ROUTE .MEDSUPPLY Qty: 100 0RF Rx Instructions: Check in the AM before breakfast gabapentin 100 mg capsule 100 - 200 mg PO TID PRN (Reason: neuropathy) Qty: 180 11RF empagliflozin 25 mg tablet 25 mg PO DAILY Qty: 90 3RF multivitamin Tablet,Chewable 1 tab PO QAM Discontinued metformin 1,000 mg tablet 1,000 mg PO BID Qty: 180 3RF lisinopril 40 mg tablet 40 mg PO DAILY Qty: 90 3RF Discharge Orders: Discharge Order (Routine); Ordered 09/04/22 Ordered By: Patrizia Rogers Admission Data Admit Date/Time: 09/01/22 11:02 Attending Provider: Nima Bond Admit Provider: Nima Bond Primary Care Provider: Rhys Cavanaugh Other Interventions: Discharge Summary Assessment (RN) Last Done: 09/04/22 11:10 Coding Level of Care Code 71561 IN/OBS DISCH 30 MIN/LESS Diagnoses Renal mass, right N28.89 Time Spent (min) 29
== END 2022-09-04 11:55 | disposition home or self-care (01) ==
LOC: ASU 06:25 → INTOOBSV 11:02 → 3E 11:02